=== PATIENT | male | born 1975 | race Caucasian/White ===

== ENCOUNTER 2016-11-26 15:23 | Emergency (ER) | payer OTHER ==
[~2016-11-26] VITALS: Ht 170.2 cm; Wt 86.2 kg
[~2016-11-26 15:23] MED LIST: CEPHALEXIN500 MG ORAL; IBUPROFEN600 MG ORAL; POLYSPORIN OI28.3 GM TP; TRAMADOL HCL50 MG ORAL
[2016-11-26] MEDS ORDERED: Norco 7.5mg/325mg tab ORAL ONE (15:45)
--- NOTE | 2016-11-26 16:06 | Emergency Room Report ---
History of Present Illness General Chief Complaint: Pain Source: Patient Present Illness HPI 40-year-old male presents emergency department complaining of 10 on a 10 in severity midline lumbar pain in addition to left heel pain status post fall from 10 foot ladder this afternoon. Patient states that the pain is very localized to the middle to low back and to the left heel denies his head or losing consciousness. Patient denies previous injury to the affected extremities. Patient denies numbness or tingling in the lower extremities, denies incontinence. Patient reports constant pain which is also exacerbated upon movements. Patient also reports bilateral paraspinal muscle pain however he is concerned about the midline spinal pain. Patient denies taking medications prior to arrival. Denies numbness tingling or loss of sensation or gross motor movements of the extremities, incontinence of bowel or bladder. Denies CP, Palpitations, LOC, AMS, dizziness, Changes in Vision, Sensation, paresthesias, or a sudden severe headache. Allergies: Coded Allergies: No Known Allergies (Unverified , 04/19/16) Patient History Past Medical History: see triage record Past Surgical History: none Pertinent Family History: none Immunizations: UTD Reviewed Nursing Documentation: PMH: Agreed, PSxH: Agreed Nursing Documentation-PMH Past Medical History: No Stated History Review of Systems All Other Systems: negative except mentioned in HPI Physical Exam Vital Signs Date Time Temp Pulse Resp B/P Pulse Ox O2 Delivery O2 Flow Rate FiO2 11/26/16 15:40 98.4 74 20 124/67 100 Room Air Sp02 EP Interpretation: reviewed, normal General Appearance: no apparent distress, alert, GCS 15, non-toxic Head: normocephalic, atraumatic Eyes: bilateral eye EOMI, bilateral eye PERRL, bilateral eye normal inspection ENT: hearing grossly normal, normal pharynx, no angioedema, normal voice Neck: full range of motion, no meningismus, no bony tend, supple/symm/no masses Respiratory: chest non-tender, lungs clear, normal breath sounds, speaking full sentences Cardiovascular #1: regular rate, rhythm, no edema, normal capillary refill Gastrointestinal: normal bowel sounds, non tender, soft, no guarding, no rebound Rectal: deferred Genitourinary: normal inspection, no CVA tenderness Musculoskeletal: back normal, normal range of motion, tender - lumbar midline TTP, and TTP to the left heel, no obvious deformity noted. no bruises. pt. also has lumbar paraspinal TTP. Neurologic: alert, oriented x3, responsive, motor strength/tone normal, sensory intact, cerebellar normal, speech normal, other - no evidence of incontinence Psychiatric: judgement/insight normal, memory normal, mood/affect normal, no suicidal/homicidal ideation Skin: normal color, no rash, warm/dry, well hydrated Lymphatic: no adenopathy Medical Decision Making PA Attestation Dr. Encinas is my supervising Physician whom patient management has been discussed with. Diagnostic Impression: Primary Impression: Sprain of foot, left Qualified Codes: S93.602A - Unspecified sprain of left foot, initial encounter Additional Impressions: Contusion of foot, left Lumbar spondylolysis ER Course 40-year-old male presents emergency department complaining of 10 on a 10 in severity midline lumbar pain in addition to left heel pain status post fall from 10 foot ladder this afternoon. Patient states that the pain is very localized to the middle to low back and to the left heel denies his head or losing consciousness. Patient denies previous injury to the affected extremities. Patient denies numbness or tingling in the lower extremities, denies incontinence. Patient reports constant pain which is also exacerbated upon movements. Patient also reports bilateral paraspinal muscle pain however he is concerned about the midline spinal pain. Patient denies taking medications prior to arrival. Ddx considered but are not limited to Fracture, dislocation, contusion, Sprain/ Strain/Spasm. Vital signs: are WNL, pt. is afebrile H&PE are most consistent with heel contusion and lumbar contusion will r/o fractures with imaging. ORDERS: - X-ray Left foot 3 views - negative for fx, Dislocation, or significant soft tissue injury, per preliminary read in ED by Dr. Encinas -CT L-Spine no Contrast: Spondylolysis of L5 and S1, no fractures per preliminary radiology report. ED INTERVENTIONS: - Byram PO - Left short posterior leg Splint applied by copier field service technician. Pt. remains neurovascularly intact. -Pt provided with crutches. DISCHARGE: At this time pt. is stable for d/c to home. Will provide printed patient care instructions, and any necessary prescriptions. Care plan and follow up instructions have been discussed with the patient prior to discharge. Last Vital Signs Date Time Temp Pulse Resp B/P Pulse Ox O2 Delivery O2 Flow Rate FiO2 11/26/16 15:40 98.4 74 20 124/67 100 Room Air Disposition: HOME, SELF-CARE Condition: Stable Scripts Ibuprofen* (MOTRIN*) 600 Mg Tablet 600 MG ORAL THREE TIMES A DAY, #30 TAB 0 Refills Prov: Sarah Beth Murry 11/26/16 Hydrocodone Bit/Acetaminophen 5-325* (NORCO 5-325*) 1 Each Tablet 1 TAB ORAL Q6H Y for For Pain, #10 TAB 0 Refills Prov: Sarah Beth Murry 11/26/16 Patient Instructions: Contusion, Spondylolysis With [facility] Additional Instructions: Take medications as directed. Follow up with PCP in 3-5 days Return sooner to ED if new symptoms occur, or current symptoms become worse. Do not drink alcohol, drive, or operate heavy machinery while taking [ ] as this may cause drowsiness. - Please note that this Emergency Department Report was dictated using [employer] marker technology software, occasionally this can lead to erroneous entry secondary to interpretation by the dictation equipment. Sarah Beth Murry Nov 26, 2016 16:06
[2016-11-26 16:31] VITALS: BP 128/65
[2016-11-26] MEDS ORDERED: IBUPROFEN600 MG ORAL (18:35)
[2016-11-26] MEDS ORDERED: NORCO 5-325 TA1 EACH ORAL (18:35)
[2016-11-26 18:49] VITALS: BP 124/69
[2016-11-26 18:50] VITALS: BP 124/69
--- NOTE | 2016-11-27 08:32 | Diagnostic Imaging Report ---
Indications: PAIN Technique: Spiral acquisitions obtained through the lumbar spine. Multiplanar reconstructions were generated. No IV contrast utilized. Total dose length product 440 mGycm. CTDIvol(s) 17 mGy Comparison: None Findings: Vertebral body heights are preserved is minimal degenerative narrowing at L4-5. The remaining disc spaces are preserved. There is bilateral L5 spondylolysis. There is grade 1 L5 on S1 spondylolisthesis. An ossific density projects posterior to the L5-S1 disc, within the epidural space, appears well-corticated, may reflect old injury. No acute fractures. No dislocations. There is mild circumferential annular bulge at L3-4. This does not significant compromise the spinal canal or neural foramina. At L4-5, there is moderate narrowing of the right neural foramen, mild narrowing of the left neural foramen. No significant disc bulge or protrusion or spinal stenosis. At L5-S1, the alignment abnormality results in very mild compromise of the bilateral neural foramina. The cyst spinal canal is not compromised. The included extraspinal soft tissues are unremarkable Impression: No acute bony trauma Bilateral L5 spondylolysis, resulting in grade 1 L5 on S1 spondylolisthesis Mild degenerative changes, as detailed above This agrees with the preliminary interpretation provided overnight by Dr. Fernandes The CT scanner at [facility] is accredited by the [employer] and the scans are performed using protocols designed to limit radiation exposure to as low as reasonably achievable to attain images of sufficient resolution adequate for diagnostic evaluation.
--- NOTE | 2016-11-27 09:50 | Diagnostic Imaging Report ---
Indications: PAIN Technique: 3 views of the left foot Comparison: None Findings: No acute fractures. No dislocations. Joint spaces are preserved. No radiopaque foreign body. Normal mineralization. Impression: No acute process
== END 2016-11-26 19:15 | disposition home or self-care (01) ==
LOC: EMR 19:01
DX: S93.602A Unspecified sprain of left foot, initial encounter (principal); S90.32XA Contusion of left foot, initial encounter; M47.896 Other spondylosis, lumbar region; W11.XXXA Fall on and from ladder, initial encounter; Y92.9 Unspecified place or not applicable; Y99.0 Civilian activity done for income or pay
CPT/HCPCS: 72131; 99284